=== PATIENT | female | born 2005 | race Caucasian/White ===

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

== ENCOUNTER 2025-04-28 16:57 | Outpatient (CLI) | payer OTHER, SELFPAY ==
--- NOTE | 2025-04-28 17:06 | US_ITS ---
WS: [id number] THYROID ULTRASOUND HISTORY: NODULE COMPARISON: 08/22/2019 Right lobe: 1.2 cm x 1.1 cm x 3.8 cm (w x ap x l). Volume: 2.4 cm3. Normal size and echotexture. No significant are dominant nodules are present. Nodule described on the prior imaging is not as well identified today. There is a very subtle area of heterogeneity. Left lobe: 1.3 cm x 0.7 cm x 3.8 cm (w x ap x l). Volume: 1.7 cm3. Normal size and echotexture. No significant or dominant nodules are present. Isthmus: 0.2 cm. US/US thyroid [id number] IMPRESSION: TI-RADS 2; no suspicious nodule for biopsy. No FNA or follow-up required.
== END 2025-04-28 16:58 | disposition home or self-care (01) ==
LOC: RAD 16:58
PROVIDERS: PCP Pediatrics Adolescent Medicine; Visit Provider Nurse Practitioner Family
DX: E04.1 Nontoxic single thyroid nodule (principal)
CPT/HCPCS: 76536